=== PATIENT | female | born 1970 | race Caucasian/White ===

== ENCOUNTER 2021-08-03 18:15 | Emergency (ER) | payer OTHER ==
[~2021-08-03] VITALS: Ht 160 cm; Wt 108.9 kg
== END 2021-08-03 21:32 | disposition home or self-care (01) ==
LOC: ER 18:15 → EMR PED 18:15 → ER 19:26
DX: H57.89 Other specified disorders of eye and adnexa (principal); H10.13 Acute atopic conjunctivitis, bilateral

== ENCOUNTER 2022-01-08 06:55 | Outpatient (CLI) | payer OTHER | END 2022-01-08 07:06 | disposition home or self-care (01) | LOC: LAB 06:55 | PROVIDERS: ATTEND Surgery | DX: G47.33 Obstructive sleep apnea (adult) (pediatric) (principal) ==

== ENCOUNTER 2023-02-16 23:26 | Emergency (ER) | payer OTHER ==
[~2023-02-16] VITALS: Ht 160 cm; Wt 86.2 kg
[2023-02-16] MEDS ORDERED: CRESTOR5 MG (23:56)
== END 2023-02-17 | disposition left against medical advice (07) ==
LOC: ER 23:26
DX: Z53.21 Procedure and treatment not carried out due to patient leaving prior to being seen by health care provider (principal)